=== PATIENT | male | born 1955 | race Caucasian/White ===

== ENCOUNTER 2017-04-04 06:22 | Emergency (ER) | payer OTHER ==
[~2017-04-04] VITALS: Ht 170.2 cm; Wt 88.5 kg
[~2017-04-04 06:22] MED LIST: ACET1TAB40 PO; AMOX1TAB10 PO; AMOX500C2 PO; CIPR500T4 PO; HYDR-902 PO; HYDR-906 PO; IBUP-1542 PO; MED4DP PO; TRAM50TA2 PO
[2017-04-04 06:26] VITALS: Ht 170.2 cm; Wt 88.5 kg
[2017-04-04] MEDS ORDERED: HYDROCODONE/APAP (5/325) TAB PO ONE (07:30)
--- NOTE | 2017-04-04 09:53 | RADRPT ---
PROCEDURE: CT Pelvis without contrast. CLINICAL INDICATION: Pelvic pain. Rule out rectal abscess. TECHNIQUE: CT scan of the pelvis without contrast was performed on a multi-detector high resolutio n CT scanner. The patient was scanned without intravenous contrast. Coronal and sagittal reformatt ed images were obtained from the axial source images. Images were reviewed on a high-resolution PAC S workstation. The total exam CTDI = 12.15 mGy and the DLP = 449.25 mGy-cm. One or more of the following dose reduction techniques were used: - Automated exposure control. - Adjustment of the mA and/or kV according to patient size. - Use of iterative reconstruction technique. COMPARISON: None. FINDINGS: CT pelvis: The small bowel loops situated within the pelvis are unremarkable. Left descending colon and sigmoi d colon diverticulosis is identified, without evidence for diverticulitis. The lower inferior rectum is grossly unremarkable. The perirectal and presacral spaces are clear. The pelvic organs are unrem arkable. The prostate gland does not appear to be significantly enlarged at this time. The pelvic s idewalls and inguinal regions are clear. Small fat-containing right inguinal hernia is seen. No mas s, lymphadenopathy, or free fluid is seen. No acute inflammation is seen. Atherosclerotic vascular calcifications of the pelvic vasculature is present. The surrounding osseous structures are remarkable for degenerative enthesopathy of the spine. No os teolytic or osteoblastic lesion is detected. Moderate multilevel discogenic disease and disc space n arrowing at the L4-5 and L5-S1 levels is identified. IMPRESSION: 1. Left descending colon and sigmoid colon diverticulosis, without diverticulitis. 2. No mass, lymphadenopathy, or focal acute inflammatory process. 3. Vascular calcifications consistent with atherosclerosis. 4. Small fat-containing right inguinal hernia. 5. 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 6. No evidence for rectal/perirectal abscess. Please consider MRI with "[id number] protocol" fo r more accurate assessment of the inferior anal and perianal spaces, as deemed clinically appropriat e. RPTAT: HMJB .Severo Avelar MD, Date Time Electronically viewed and signed by .Severo Avelar MD, on 04/04/2017 09:52 .Shilpa
--- NOTE | 2017-04-04 10:02 | ERD ---
ER Documentation Chief Complaint Date/Time DATE: 04/04/17 TIME: 10:01 Chief Complaint pt bib self with c/o left sided groin pain x 2 days radiates to rectal area HPI This is a 61-year-old male presents the emergency department today complaining of a ball in his rectum that is getting bigger over the past 2 weeks. States he has pressure when he makes a bowel movement. States he tried some ointment with no improvement in symptoms .denies any constipation, fevers or chills. ROS All systems reviewed and are negative except as per history of present illness. Medications Home Meds Active Scripts Ibuprofen* (Motrin*) 600 Mg Tab, 600 MG PO Q6, #30 TAB Prov:PROROSALINDA GUZMAN-C 04/04/17 Hydrocodone/Acetaminophen ([place] 5-325 Tablet) 1 Each Tablet, 1 TAB PO Q6H Y for PAIN, #10 TAB Prov:ROSALINDA FLANAGAN-C 04/04/17 Sulfamethoxazole/Trimethoprim* (Bactrim Ds* Tablet) 1 Each Tablet, 1 TAB PO BID for 7 Days, #14 TAB Prov:ROSALINDA FLANAGAN-C 04/04/17 Cephalexin* (Keflex*) 500 Mg Capsule, 500 MG PO QID for 7 Days, CAP Prov:ROSALINDA FLANAGAN-C 04/04/17 Hydrocodone/Acetaminophen ([place] 10-325 Tablet) 1 Each Tablet, 1 TAB PO Q6H Y for PAIN, #12 TAB Prov:ROSALINDA FLANAGAN-C 04/22/16 Amoxicillin/Potassium Clav (Amox-Clav 875-125 mg Tablet) 875-125 mg Tab, 1 TAB PO BID for 10 Days, #20 TAB Prov:PROROSALINDA GUZMAN-C 04/22/16 Methylprednisolone* (Medrol* DOSE PACK) 4 Mg/Dose-Pack Tab.ds.pk, 4 MG PO . DIRECTED for 6 Days, PACKET Prov:FRANCESCA HESTER 03/08/16 Tramadol HCl (Tramadol HCl) 50 Mg Tablet, 50 MG PO Q4 Y for PAIN, #20 TAB Prov:KACIEFRANCESCA JOY 03/08/16 Hydrocodone/Acetaminophen ([place] 5-325 Tablet) 1 Each Tablet, 1 TAB PO Q6H Y for PAIN, #12 TAB Prov:DAGOBERTO MCKINNON PA-C 03/04/16 Ciprofloxacin Hcl* (Ciprofloxacin Hcl*) 500 Mg Tablet, 500 MG PO BID for 10 Days , TAB Prov:ALEXANDRA PUTNAM MD 03/25/15 Ibuprofen* (Ibuprofen*) 600 Mg Tablet, 600 MG PO Q6, #20 TAB Prov:ALEXANDRA PUTNAM MD 03/25/15 Acetaminophen-Codeine* (Acetaminophen-Cod #3*) 300-30 Mg Tab, 1 TAB PO Q4H Y for PAIN, #10 TAB Prov:ALEXANDRA PUTNAM MD 03/25/15 Ibuprofen* (Motrin*) 600 Mg Tab, 600 MG PO Q6, #20 TAB Prov:DAGOBERTO MCKINNON PA-C 03/10/15 Amoxicillin* (Amoxicillin*) 500 Mg Cap, 500 MG PO TID for 7 Days, CAP Prov:DAGOBERTO MCKINNON PA-C 03/10/15 Allergies Allergies: Coded Allergies: No Known Allergy (Unverified , 04/04/17) PMhx/Soc History of Surgery: Yes (right lower leg 40 years ago) Anesthesia Reaction: No Hx Neurological Disorder: No Hx Respiratory Disorders: No Hx Cardiac Disorders: No Hx Psychiatric Problems: No Hx Miscellaneous Medical Probl: No Hx Alcohol Use: Yes (beer daily) Hx Substance Use: No Hx Tobacco Use: No Smoking Status: Never smoker Physical Exam Vitals Vital Signs Date Time Temp Pulse Resp B/P Pulse Ox O2 Delivery O2 Flow Rate FiO2 04/04/17 10:41 98.1 78 18 162/69 98 Room Air 04/04/17 06:26 98.3 62 18 183/68 98 Physical Exam Const: NAD Head: Atraumatic Eyes: Normal Conjunctiva ENT: Normal External Ears, Nose and Mouth. Neck: Full range of motion..~ No meningismus. Resp: Clear to auscultation bilaterally Cardio: Regular rate and rhythm, no murmurs Abd: Soft, non tender, non distended. Normal bowel sounds : 3 cm abscess left side of perianal area of fluctuance and localized erythema Skin: No petechiae or rashes Neur: Awake and alert Psych: Normal Mood and Affect Results 24 hrs Current Medications Medications (Trade) Dose Ordered Sig/Lazaro Route PRN Reason Start Time Stop Time Status Last Admin Dose Admin Acetaminophen/ Hydrocodone Bitart ([place] (5/325)) 1 tab ONCE ONCE PO 04/04/17 07:30 04/04/17 07:31 DC 04/04/17 07:20 DIAGNOSTIC IMAGING REPORT Patient: REYES JIMÉNEZ : 1955 Age: 61 Sex: M MR #: [id number] DOS: 04/04/17 0000 Ordering MD: ROSALINDA FLANAGAN PA-C Location: [facility] Room/Bed: PROCEDURE: CT Pelvis without contrast. CLINICAL INDICATION: Pelvic pain. Rule out rectal abscess. TECHNIQUE: CT scan of the pelvis without contrast was performed on a multi- detector high resolution CT scanner. The patient was scanned without intravenous contrast. Coronal and sagittal reformatted images were obtained from the axial source images. Images were reviewed on a high-resolution PACS workstation. The total exam CTDI = 12.15 mGy and the DLP = 449.25 mGy-cm. One or more of the following dose reduction techniques were used: - Automated exposure control. - Adjustment of the mA and/or kV according to patient size. - Use of iterative reconstruction technique. COMPARISON: None. FINDINGS: CT pelvis: The small bowel loops situated within the pelvis are unremarkable. Left descending colon and sigmoid colon diverticulosis is identified, without evidence for diverticulitis. The lower inferior rectum is grossly unremarkable. The perirectal and presacral spaces are clear. The pelvic organs are unremarkable. The prostate gland does not appear to be significantly enlarged at this time. The pelvic sidewalls and inguinal regions are clear. Small fat- containing right inguinal hernia is seen. No mass, lymphadenopathy, or free fluid is seen. No acute inflammation is seen. Atherosclerotic vascular calcifications of the pelvic vasculature is present. The surrounding osseous structures are remarkable for degenerative enthesopathy of the spine. No osteolytic or osteoblastic lesion is detected. Moderate multilevel discogenic disease and disc space narrowing at the L4-5 and L5-S1 levels is identified. IMPRESSION: 1. Left descending colon and sigmoid colon diverticulosis, without diverticulitis. 2. No mass, lymphadenopathy, or focal acute inflammatory process. 3. Vascular calcifications consistent with atherosclerosis. 4. Small fat-containing right inguinal hernia. 5. 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 6. No evidence for rectal/perirectal abscess. Please consider MRI with "fistula -in-ano protocol" for more accurate assessment of the inferior anal and perianal spaces, as deemed clinically appropriate. RPTAT: HMJB .Severo Avelar MD, Date Time Electronically viewed and signed by .Severo Avelar MD, MD on 04/04/2017 09:52 .B/ CC: ROSALINDA FLANAGAN PA-C Procedures/MDM This is a 61-year-old male who presents to the emergency department today complaining of a bump in the patient's rectal area that has gotten worse over the past 2 weeks. On physical exam patient has evidence of a perianal abscess. Discussed the patient with Dr. Son and he recommended a CT scan to see whether the abscess was tracking. CT pelvis non contrast shows left descending colon and sigmoid colon diverticulosis without diverticulitis. There is no mass lymphadenopathy or focal acute inflammatory process. There are small fat-containing right inguinal hernia. There is significant chronic degenerative changes of the lumbar spine. There is no evidence for rectal or perirectal abscess. I did explain to the patient the risks and benefits of draining the abscess and I did feel that the patient's symptoms would improve. Patient agreed to proceed and the patient tolerated the procedure well and there were no complications. A large amount of foul-smelling discharge was drained from the area Abscess Incision and Drainage with irrigation by me: Location: perianal Anesthesia: [Local 1% Lidocaine] 3 cc Technique: [Irrigated. Disrupted loculations w/ instrumentation ] Packing: iodoform Complications: [Neurovascularly intact post procedure] Scar minimization instructions given. Patient's skin symptoms have stabilized while they have been evaluated in the department and are appropriate for outpatient care and work up. Patient is afebrile and otherwise well-appearing. Exam and w/u not consistent w / sepsis, deep space infection, or foreign body. Patient was given Motrin here in the emergency department as he was driving himself and he was given instructions to return in 48 hours to remove wound packing. He was given a short course of [place], Motrin, Bactrim and Keflex for home. Dr. Putnam then saw and evaluated the patient and was in agreement with the plan. Departure Diagnosis: Primary Impression: Perianal abscess Condition: ROSALINDA Huber PA-C Apr 04, 2017 10:01
[2017-04-04] MEDS ORDERED: CEPH-443 PO (10:32)
[2017-04-04] MEDS ORDERED: SULF1TAB31 PO (10:32)
[2017-04-04] MEDS ORDERED: IBUP-1542 PO (10:33)
[2017-04-04] MEDS ORDERED: HYDR-906 PO (10:33)
[2017-04-04 10:41] VITALS: BP 162/69; PULSE 78; RESP 18; TEMP 98.1
== END 2017-04-04 10:42 | disposition home or self-care (01) ==
LOC: FTE 06:22
DX: K61.0 Anal abscess (principal)
CPT/HCPCS: 46050; 72192; Z7502; Z7610

== ENCOUNTER 2018-03-04 00:47 | Emergency (ER) | END 2018-03-04 02:13 | disposition home or self-care (01) ==